=== PATIENT | female | born 1985 | race Caucasian/White ===

== ENCOUNTER 2018-05-25 15:40 | Emergency (ER) | END 2018-05-25 18:50 | disposition home or self-care (01) ==

== ENCOUNTER 2018-12-13 23:20 | Emergency (ER) | payer BC ==
[~2018-12-13] VITALS: Ht 162.6 cm; Wt 144.0 kg
[~2018-12-13 23:20] MED LIST: CYCL10TA7 PO; DULO60CA6 PO; HYDR-3025 PO; LORA-441 PO; NAPR-985 PO; SUMA25TA34 PO
[2018-12-13 23:24] VITALS: Ht 162.6 cm; Wt 144.0 kg
[2018-12-13] MEDS ORDERED: KETOROLAC 60 MG INJ IM STA (23:44)
[2018-12-14] MEDS ORDERED: HYDROCODONE/APAP (5/325) TAB PO ONE
[2018-12-14] MEDS ORDERED: PROM5SYR2 PO ×2 (00:11→00:14)
--- NOTE | 2018-12-14 00:27 | ERD ---
ER Documentation Chief Complaint Chief Complaint right ankle pain HPI 33-year-old female with history of reconstructive surgery of the of the right foot presents due to acute ankle pain. States that she was upstairs in the hospital and the nurse went into her with 1 of the recliners, hitting her ankle. States that she is unable to ambulate without acute pain. She states that the pain hurts from the ankle up to the [place] area. Denies any numbness or tingling. Denies impaired range of motion. Denies any bleeding. Denies any treatments. ROS All systems reviewed and are negative except as per history of present illness. Medications Home Meds Active Scripts Naproxen* (Naprosyn*) 500 Mg Tablet, 500 MG PO BID PRN for PAIN AND/OR INFLAMMATION, #30 TAB Prov:LISETTE SUERO PA-C 05/25/18 Cyclobenzaprine Hcl* (Cyclobenzaprine Hcl*) 10 Mg Tablet, 10 MG PO TID, #15 TAB Prov:LISETTE SUERO PA-C 05/25/18 Lorazepam* (Ativan*) 0.5 Mg Tablet, 0.5 MG PO Q8, #15 TAB Prov:JAMES CHARLTON 08/20/15 Reported Medications Sumatriptan Succinate* (Imitrex*) 25 Mg Tablet, 25 MG PO BID for MIGRAINE HEADACHE, TAB May repeat after 2 hours if needed; MAX 200 mg/24 hours 07/03/15 Hydrocodone Bit-Acetaminophen* (Vicodin* ES) 7.5-300 Mg Tablet, 1 EACH PO Q4H PRN for PAIN, TAB 07/03/15 Duloxetine Hcl* (Cymbalta*) 60 Mg Capsule.dr, 60 MG PO DAILY, CAP 07/03/15 Discontinued Scripts Promethazine HCl/Codeine (Prometh-Codein 6.25-10 mg/5 ml) 5 Ml Syrup, 5 ML PO Q4 for cough, #4 OZ 1 Refill Prov:LISETTE KRUGER 12/14/18 Allergies Allergies: Coded Allergies: cefazolin (Verified Allergy, Unknown, anaphylactic shock, 07/03/15) PMhx/Soc History of Surgery: Yes (L5-S1 DISC REMOVAL 2010, FUSION L4-L5) Anesthesia Reaction: No Hx Neurological Disorder: No Hx Respiratory Disorders: Yes (SEASONAL ASTHMA) Hx Cardiac Disorders: No Hx Psychiatric Problems: No Hx Miscellaneous Medical Probl: No Hx Alcohol Use: No Hx Substance Use: No Hx Tobacco Use: No Smoking Status: Never smoker FmHx Family History: No diabetes, No coronary disease, No other Physical Exam Vitals Vital Signs Date Temp Pulse Resp B/P (MAP) Pulse Ox O2 O2 Flow FiO2 Time Delivery Rate 12/13/18 98.3 78 18 71/ 99 23:24 Physical Exam Const: No acute distress Head: Atraumatic Eyes: Normal Conjunctiva ENT: Normal External Ears, Nose and Mouth. Neck: Full range of motion. No meningismus. Resp: Clear to auscultation bilaterally Cardio: Regular rate and rhythm, no murmurs Abd: Soft, non tender, non distended. Normal bowel sounds Skin: No petechiae or rashes Back: No midline or flank tenderness Right ankle: Tenderness to palpation over the anterior, lateral, medial aspect of the right ankle. There is no edema erythema or bony deformity noted. Overlying skin is intact. There is full range of motion. In addition there is tenderness to palpation over the anterior right fibula. There is no edema erythema or bony deformity noted. overlying skin is intact. All compartments are soft and warm. There is no pallor or cyanosis. Range of motion is intact. Patient unable to ambulate without acute pain. Neur: Awake and alert Psych: Normal Mood and Affect Results 24 hrs Laboratory Tests Test 12/14/18 00:28 POC Beta HCG, Qualitative NEGATIVE Current Medications Medications Dose Sig/Vishal Start Time Status Last (Trade) Ordered Route PRN Stop Time Admin Dose Reason Admin Ketorolac 60 mg ONCE STAT 12/13/18 DC 12/14/18 Tromethamine IM 23:44 00:33 (Toradol) 12/13/18 23:48 1 tab ONCE ONCE 12/14/18 DC 12/14/18 Acetaminophen PO 00:00 00:33 / 12/14/18 00:01 Hydrocodone Bitart ([place] (5/325)) Procedures/MDM DIAGNOSTIC IMAGING REPORT Patient: YAHIR OJEDA : 1985 Age: 33 Sex: F MR #: [id number] DOS: 12/13/18 2344 Ordering MD: LISETTE KRUGER Location: [facility] Room/Bed: PROCEDURE: Right ankle. CLINICAL INDICATION: Pain. TECHNIQUE: Three views including AP, lateral and oblique views were performed. COMPARISON: 08/20/2015. FINDINGS: There is no fracture, dislocation or bone destruction. The ankle mortise is within normal limits. Bone mineralization is within normal limits. There is no radiopaque foreign body or abnormal calcification. IMPRESSION: No evidence of fracture. .John Monreal MD, MD Date Time Electronically viewed and signed by .John Monreal MD, MD on 12/14/2018 00:24 .T/ CC: LISETTE KRUGER [id number] DIAGNOSTIC IMAGING REPORT Patient: YAHIR OJEDA : 1985 Age: 33 Sex: F MR #: [id number] DOS: 12/13/18 2344 Ordering MD: LISETTE KRUGER [facility] Room[facility]Bed: PROCEDURE: Right foot. CLINICAL INDICATION: Pain. TECHNIQUE: Three views including AP, lateral and oblique views of the right foot were obtained. The images were reviewed on a PACS workstation. COMPARISON: None. FINDINGS: There is no fracture, dislocation or bone destruction. The joint spaces are within normal limits. Bone mineralization is within normal limits. There is no radiopaque foreign body or abnormal calcification. IMPRESSION: No evidence of fracture. .John Monreal MD, MD Date Time Electronically viewed and signed by .John Monreal MD, MD on 12/14/2018 00:25 .T/ CC: LISETTE KRUGER [id number] DIAGNOSTIC IMAGING REPORT Patient: YAHIR OJEDA : 1985 Age: 33 Sex: F MR #: [id number] DOS: 12/13/18 2344 Ordering MD: LISETTE KRUGER [facility] Room/Bed: PROCEDURE: Right tibia and fibula. CLINICAL INDICATION: Pain. TECHNIQUE: 2 views including AP and lateral views of the right tibia and fibula were obtained. COMPARISON: None. FINDINGS: There is no fracture, dislocation or bone destruction. The joint spaces are within normal limits. Bone mineralization is within normal limits. There is no radiopaque foreign body or abnormal calcification. IMPRESSION: No evidence of fracture. .John Monreal MD, MD Date Time Electronically viewed and signed by .John Monreal MD, on 12/14/2018 00:26 .T/ CC: LISETTE KRUGER [id number] Patient given Toradol, [place], and x-ray of the right foot, ankle, and tib-fib. All x-rays within normal limits. Most patient most likely suffering from contusion versus soft tissue injury. Patient placed in Romain wrap for ankle stabilization. splint Assessment: Neurovascularly intact post splint placement with good fit. Patient given Rx ibuprofen for pain. I have low suspicion for neurovascular compromise, compartment syndrome, fracture, osteomyelitis, septic joint, or other emergent condition. Patient advised to follow-up with Dr. Solorzano if pain and function does not improve. Patient discharged with strict ER precautions. Patient advised to follow up with PMD. All questions answered at discharge. Departure Diagnosis: Primary Impression: Ankle injury Encounter type: initial encounter Laterality: right Qualified Codes: S99.911A - Unspecified injury of right ankle, initial encounter Additional Impression: Ankle pain Chronicity: acute Laterality: right Qualified Codes: M25.571 - Pain in right ankle and joints of right foot Condition: Stable LISETTE KRUGER Dec 14, 2018 00:27
[2018-12-14] MEDS ORDERED: IBUP-1542 PO (01:22)
[2018-12-14] MEDS ORDERED: DIPHENHYDRAMINE 50 MG CAP PO ONE (01:30)
[2018-12-14 01:51] VITALS: BP 124/64; PULSE 70; RESP 20
== END 2018-12-14 01:52 | disposition home or self-care (01) ==
LOC: FTE 23:20
DX: S99.911A Unspecified injury of right ankle, initial encounter (principal); W50.0XXA Accidental hit or strike by another person, initial encounter; Y92.239 Unspecified place in hospital as the place of occurrence of the external cause
CPT/HCPCS: 73590; 73610; 73630; 81025; 96372; 99284; J1885; Z7610

== ENCOUNTER → 2019-05-08 | Emergency (ER) | payer SELFPAY ==
[~2019-05-08] VITALS: Ht 162.6 cm; Wt 60.0 kg
[~2019-05-08] MED LIST changes: +DEXAMETHASONE 10 MG/ML 1 ML INJ IM ONE; +HYDR-3980 PO; +HYDROCODONE/APAP (10/325) TAB PO ONE; +IBUP-1542 PO; +NALO4SPR NS
[2019-05-08 09:31] VITALS: BP 112/67; PULSE 88; RESP 18; Ht 162.6 cm; Wt 60.0 kg
== END | disposition home or self-care (01) ==
LOC: FTE 09:24
DX: M54.41 Lumbago with sciatica, right side (principal); M54.42 Lumbago with sciatica, left side
CPT/HCPCS: 81003; 81025; J1100; 96372